=== PATIENT | male | born 1970 | race Asian ===

== ENCOUNTER 2020-06-02 16:08 | Observation (INO) ==
--- OUTSIDE RECORDS SUMMARY | 2020-06-02 16:10 | External Medical Summary | Continuity of Care Document ---
:1970 Author Name Yusuf Murdock Address Unavailable Unavailable , Care Team Providers Name Role Phone Mike Liz M.D. Unavailable [email or web address] Unavailable Unavailable Unavailable Unavailable Unavailable Problems Lumbar radiculopathy (724.4) (M54.16) Disc degeneration, lumbar (722.52) (M51.36) Sinusitis (473.9) (J32.9) Allergies and Adverse Reactions No Known Drug Allergies (Allergy) Medications Azithromycin 250 MG Oral Tablet; TAKE 2 TABLETS ON DAY 1 THEN TAKE 1 TABLET A DAY FOR 4 DAYS. Collette Liz Start: 26-Aug-2013 Quantity: 6 Refills: 1 Procedures Procedures not documented Immunizations Immunizations not documented Plan of Treatment Planned Observations Planned Goals not documented Results No Known Results Results not documented
[2020-06-02] MEDS ORDERED: ACETAMINOPHEN 325 MG TAB PO STA (16:50)
[2020-06-02] MEDS ORDERED: NITROGLYCERIN 2% OINTMENT 30GM TUBE EXT STA (16:50)
--- NOTE | 2020-06-02 17:00 | Emergency Department Note ---
Impression & Plan Precordial chest pain, Hypertension ED Provider Note NAME: STACIE CANAS AGE: 49 SEX: M : 1970 ARRIVES VIA: Ambulance INFORMANT: [Patient][family friend] ED PROVIDER(S): [Isreal Herron MD] CHIEF COMPLAINT: Chest pain HISTORY OF PRESENT ILLNESS: The patient is a 49-year-old male presents the ED with several bouts of chest pain over the last few days. His first episode occurred at night and actually woke him from sleep. The episodes last a few minutes in length. He has left- sided chest pain with radiation to his left shoulder. He was sweaty with the first episode 4 days ago. No shortness of breath, no nausea. The patient has had several episodes of chest discomfort since. Today, around 3 hours ago, he had a bout of chest discomfort that seemed a little more severe than his others. He would rate it as a 7 on a scale of 1-10. He had left chest pain and left shoulder pain, there was no sweating, no nausea or shortness of breath. The pain has resolved spontaneously. The patient has not noticed any exertional chest discomfort. He did see his doctor's office yesterday and had an ECG done. He was ordered for a stress test but that has yet to be performed. The patient presents today as his symptoms seemed to be slightly worse. He does have a strong family history of heart disease. He also lately has had some higher blood pressure. Patient's doctors office did call here, they are concerned about the possibility of coronary disease as the cause for his symptoms. REVIEW OF SYSTEMS: See HPI for pertinent positives and negatives. A total of ten systems were reviewed and were otherwise negative. PMHx/PSHx: See Below SOCIAL HISTORY: See Below. PHYSICAL EXAM: GENERAL: Patient is in no acute distress. HEENT: No acute trauma, normocephalic atraumatic, mucous membranes moist, no nasal congestion, no scleral icterus. NECK: No stridor, no adenopathy, no meningismus, trachea is midline. LUNGS: Clear to auscultation bilaterally, no wheeze, no rhonchi, breath sounds equal. HEART: Without murmurs gallops or rubs, regular rate and rhythm. ABDOMEN: Soft, nontender, bowel sounds positive, no hernias, no peritonitis. EXTREMITIES: No cyanosis or edema, full range of motion of all the joints without pain or difficulty, no signs for acute trauma. NEUROLOGIC: Oriented x 3, no acute motor or sensory deficits, no focal weakness. SKIN: No rash, no jaundice, no diaphoresis. DIFFERENTIAL DIAGNOSIS: EMERGENCY DEPARTMENT COURSE/PROCEDURES: ECG: Indication was chest pain. The ECG shows a normal sinus rhythm with a rate of 97. There is some very subtle ST depression in the lateral leads. There are some inverted T waves in the inferior leads. There is no ST elevation, no PVCs. The QTc is 467. No old ECGs available for comparison. Continuous Cardiac Monitoring: An order was placed for continuous cardiac monitoring. The monitor shows a rate of 98 with normal sinus rhythm. MEDICAL DECISION MAKING: There is no leukocytosis or concerning anemia. There is a normal platelet count. No coagulopathy. No significant electrolyte abnormality or kidney failure. No concerning liver enzyme elevation. No evidence for pancreatitis. ECG shows a sinus rhythm, there is no evidence for acute [place]. Cardiac enzyme testing x1 is not consistent with acute cardiac injury. Chest x-ray does not show mediastinal widening, pneumonia or pneumothorax. On exam, the patient was resting comfortably at the time of my evaluation, he was hypertensive. The patient was given nitroglycerin paste 2 inches. He received oral Tylenol to hopefully prevent any headache from the nitroglycerin. He was given IV Lopressor for his blood pressure elevation. The patient is currently without complaints. His blood pressure has decreased to 146/99. His pulse is around 77. The patient does have cardiac risk factors and I do think further cardiac work- up inside the hospital is warranted. I spoke to the patient and vinicio cifuentes. The on-call hospitalist was consulted. At this point, the cause for the chest pain is unclear. Past Med/Surg History Medical History GERD (gastroesophageal reflux disease) Social History Smoking Status: Never smoker Preferred Language: Macedonian Feels Safe at Home: Yes Allergies Allergies Allergy/AdvReac Type Severity Reaction Status Date / Time No Known Allergies Allergy Verified 06/02/20 18:27 Home Meds Home Medications Medication Instructions Recorded Confirmed No Known Home Medications 06/02/20 06/02/20 Results & Data (ED) Vital Signs Vital Signs - 24 hr 06/02/20 16:13 06/02/20 16:15 06/02/20 16:20 Temperature 37.2 C Temperature Source Oral Pulse Rate 89 103 H 95 H Pulse Rate from SpO2 Sensor 91 H 95 H Pulse Rhythm Regular Pulse Strength Normal Respiratory Rate 13 14 21 Respiratory Effort / Characteristics Non-Labored Spontaneous Respiratory Depth Normal Respiratory Pattern Regular Blood Pressure 186/124 H 186/124 H Blood Pressure Mean 144 144 Blood Pressure Position Sitting Pulse Oximetry 100 100 100 Oxygen Delivery Method Room Air Sepsis Recent Fever Within 48 Hours No Sepsis New/Unexplained Change in Mental Status No Sepsis Action Taken by Nursing No Action Required 06/02/20 16:30 06/02/20 16:31 06/02/20 16:40 Temperature Temperature Source Pulse Rate 83 86 83 Pulse Rate from SpO2 Sensor 86 86 84 Pulse Rhythm Pulse Strength Respiratory Rate 19 17 17 Respiratory Effort / Characteristics Respiratory Depth Respiratory Pattern Blood Pressure 185/127 H Blood Pressure Mean 146 Blood Pressure Position Pulse Oximetry 99 99 97 Oxygen Delivery Method Sepsis Recent Fever Within 48 Hours Sepsis New/Unexplained Change in Mental Status Sepsis Action Taken by Nursing 06/02/20 16:50 06/02/20 16:59 06/02/20 17:00 Temperature Temperature Source Pulse Rate 95 H 87 Pulse Rate from SpO2 Sensor 94 H 89 Pulse Rhythm Pulse Strength Respiratory Rate 17 16 Respiratory Effort / Characteristics Respiratory Depth Respiratory Pattern Blood Pressure 165/129 H Blood Pressure Mean 141 Blood Pressure Position Pulse Oximetry 100 100 99 Oxygen Delivery Method Room Air Sepsis Recent Fever Within 48 Hours Sepsis New/Unexplained Change in Mental Status Sepsis Action Taken by Nursing 06/02/20 17:01 06/02/20 17:10 06/02/20 17:20 Temperature Temperature Source Pulse Rate 97 H 98 H 87 Pulse Rate from SpO2 Sensor 95 H Pulse Rhythm Pulse Strength Respiratory Rate 21 22 19 Respiratory Effort / Characteristics Respiratory Depth Respiratory Pattern Blood Pressure Blood Pressure Mean Blood Pressure Position Pulse Oximetry 99 Oxygen Delivery Method Sepsis Recent Fever Within 48 Hours Sepsis New/Unexplained Change in Mental Status Sepsis Action Taken by Nursing 06/02/20 17:30 06/02/20 17:40 06/02/20 17:50 Temperature Temperature Source Pulse Rate 105 H 96 H 92 H Pulse Rate from SpO2 Sensor Pulse Rhythm Pulse Strength Respiratory Rate 20 19 14 Respiratory Effort / Characteristics Respiratory Depth Respiratory Pattern Blood Pressure 167/121 H Blood Pressure Mean 136 Blood Pressure Position Pulse Oximetry Oxygen Delivery Method Sepsis Recent Fever Within 48 Hours Sepsis New/Unexplained Change in Mental Status Sepsis Action Taken by Nursing 06/02/20 17:59 06/02/20 18:00 06/02/20 18:01 Temperature Temperature Source Pulse Rate 85 91 H 82 Pulse Rate from SpO2 Sensor Pulse Rhythm Pulse Strength Respiratory Rate 16 20 17 Respiratory Effort / Characteristics Respiratory Depth Respiratory Pattern Blood Pressure 171/108 H 163/113 H Blood Pressure Mean 129 129 Blood Pressure Position Pulse Oximetry Oxygen Delivery Method Sepsis Recent Fever Within 48 Hours Sepsis New/Unexplained Change in Mental Status Sepsis Action Taken by Nursing 06/02/20 18:10 06/02/20 18:14 06/02/20 18:30 Temperature Temperature Source Pulse Rate 91 H 93 H 73 Pulse Rate from SpO2 Sensor Pulse Rhythm Pulse Strength Respiratory Rate 15 15 20 Respiratory Effort / Characteristics Respiratory Depth Respiratory Pattern Blood Pressure 161/106 H 147/105 H Blood Pressure Mean 124 119 Blood Pressure Position Pulse Oximetry Oxygen Delivery Method Sepsis Recent Fever Within 48 Hours Sepsis New/Unexplained Change in Mental Status Sepsis Action Taken by Nursing 06/02/20 18:40 06/02/20 18:45 06/02/20 19:00 Temperature Temperature Source Pulse Rate 77 75 77 Pulse Rate from SpO2 Sensor Pulse Rhythm Pulse Strength Respiratory Rate 17 15 17 Respiratory Effort / Characteristics Respiratory Depth Respiratory Pattern Blood Pressure 167/103 H 146/99 H Blood Pressure Mean 124 114 Blood Pressure Position Pulse Oximetry Oxygen Delivery Method Sepsis Recent Fever Within 48 Hours Sepsis New/Unexplained Change in Mental Status Sepsis Action Taken by [facility] Medications Current Medication List: was personally reviewed by me Laboratory Data Attestation: I reviewed the patient's lab results. Result diagrams: 06/02/20 17:03 06/02/20 17:03 Lab Results 06/02/20 06/02/20 06/02/20 Range/Units 17:03 17:03 17:03 WBC 8.71 (4.8-10.8) K/uL RBC 5.69 (4.7-6.1) M/uL Hgb 15.3 (14.0-18.0) g/dL Hct 46.0 (42-52) % MCV 80.8 (80-100) fL MCH 26.9 (25-34) pg MCHC 33.3 (32-36) g/dL RDW Std Deviation 40.9 (36.4-46.3) fL RDW Coeff of Caden 13.8 (11.5-14.5) % Plt Count 295 (130-400) K/uL MPV 10.9 H (7.4-10.4) fL Immature Gran % (Auto) 0.2 % Neut % (Auto) 68.4 % Lymph % (Auto) 20.4 % [place] % (Auto) 7.9 % Eos % (Auto) 2.9 % Baso % (Auto) 0.2 % Neut # (Auto) 5.95 (1.4-6.5) K/uL Lymph # (Auto) 1.78 (1.2-3.4) K/uL [place] # (Auto) 0.69 H (0.11-0.59) K/uL Eos # (Auto) 0.25 (0-0.5) K/uL Baso # (Auto) 0.02 (0-0.2) K/uL Immature Gran # (Auto) 0.02 (0.00-0.02) K/uL PT 10.5 (9.0-12.0) Seconds INR 1.0 (0.9-1.1) APTT 30.1 (21.0-31.0) Seconds PTT Ratio 1.1 Sodium 137 (136-145) mmol/L Potassium 3.9 (3.5-5.1) mmol/L Chloride 103 (98-107) mmol/L Carbon Dioxide 28 (21-32) mmol/L Anion Gap 6.0 (3-11) BUN 9 (7-18) mg/dl Creatinine 0.98 (0.6-1.4) mg/dl Est Cr Clr Drug Dosing 89.7 ml/min Est GFR ( Amer) 103.8 Est GFR (Non-Af Amer) 89.5 BUN/Creatinine Ratio 9.4 L (10-20) Glucose 154 H (70-99) mg/dl Calcium 9.6 (8.5-10.1) mg/dl Magnesium 2.3 (1.8-2.4) mg/dl Total Bilirubin 0.5 (0.2-1) mg/dl AST 36 (15-37) U/L ALT 72 (12-78) U/L Alkaline Phosphatase 80 (45-117) U/L Troponin I 0.025 (0-0.045) ng/ml Total Protein 8.3 H (6.4-8.2) gm/dl Albumin 3.9 (3.4-5.0) gm/dl Globulin 4.4 H (2.5-4.0) gm/dl Albumin/Globulin Ratio 0.9 (0.9-2) Lipase 166 (73-393) U/L Administered Medications Discontinued Medications Acetaminophen (Acetaminophen 325 Mg Tab) 650 mg PO NOW STA Stop: 06/02/20 16:51 Last Admin: 06/02/20 17:22 Dose: 650 mg Documented by: [id number] Metoprolol Tartrate (Metoprolol Tartrate 1 Mg/Ml Vial) 5 mg IV NOW STA Stop: 06/02/20 18:01 Last Admin: 06/02/20 18:14 Dose: 5 mg Documented by: [id number] Nitroglycerin (Nitroglycerin 2% Ointment 30gm Tube) 2 inch EXT NOW STA Stop: 06/02/20 16:51 Last Admin: 06/02/20 17:22 Dose: 2 inch Documented by: [id number] Imaging Data Radiologist's Impression: XR chest 1V portable HISTORY: 49 years-old Male Chest Pain . Acute atypical chest pain COMPARISON: None TECHNIQUE: Portable AP view of the chest FINDINGS: Cardiac silhouette is upper limits of normal in size. No pneumothorax, pleural effusion, airspace consolidation or overt pulmonary edema. Bones of the chest appear grossly intact. IMPRESSION: No acute process. Discharge Plan Visit Data Chief Complaint: Cardiac Assessment Stated Complaint: Cardiac Assessment ED Provider: Isreal Herron Discharge Problem: Precordial chest pain, Hypertension Patient Disposition: Admitted As Inpatient Condition: Fair Forms Stand Alone Forms: [facility] [employer] Prescriptions Prescriptions: No Action No Known Home Medications RF: 0 Referrals Referrals: Bala Hill MD [Primary Care Provider] - Discharge Problem: Hypertension Qualifiers: Hypertension type: unspecified Qualified Code(s): I10 - Essential (primary) hypertension
--- NOTE | 2020-06-02 17:04 | XRay Report ---
XR chest 1V portable HISTORY: 49 years-old Male Chest Pain . Acute atypical chest pain COMPARISON: None TECHNIQUE: Portable AP view of the chest FINDINGS: Cardiac silhouette is upper limits of normal in size. No pneumothorax, pleural effusion, airspace con solidation or overt pulmonary edema. Bones of the chest appear grossly intact. IMPRESSION: No acute process. ACT 112: Negative or not required by law. The above report was generated using voice recognition software. It may contain grammatical, syntax o r spelling errors. Electronically signed by: Vinh Gill M.D. 06/02/2020 5:02 PM
[2020-06-02 17:20] LABS: Basophils # (auto) 0.02 K/uL (0-0.2); Basophils % (auto) 0.2 %; Eosinophils # (auto) 0.25 K/uL (0-0.5); Eosinophils % (auto) 2.9 %; Hemoglobin 15.3 g/dL (14.0-18.0); Immature Granulocytes # (auto) 0.02 K/uL (0.00-0.02); Immature Granulocytes % (auto) 0.2 %; Lymphocytes # (auto) 1.78 K/uL (1.2-3.4); Lymphocytes % (auto) 20.4 %; Mean Corpuscular Hemoglobin 26.9 pg (25-34); Mean Corpuscular Hgb Conc 33.3 g/dL (32-36); Mean Corpuscular Volume 80.8 fL (80-100); Mean Platelet Volume 10.9 fL (7.4-10.4); Monocytes # (auto) 0.69 K/uL (0.11-0.59); Monocytes % (auto) 7.9 %; Neutrophils # (auto) 5.95 K/uL (1.4-6.5); Neutrophils % (auto) 68.4 %; Platelet Count 295 K/uL (130-400); RDW Coefficient of Variation 13.8 % (11.5-14.5); RDW Standard Deviation 40.9 fL (36.4-46.3); Red Blood Count 5.69 M/uL (4.7-6.1); White Blood Count 8.71 K/uL (4.8-10.8)
[2020-06-02 17:30] LABS: Partial Thromboplastin Ratio 1.1; Partial Thromboplastin Time 30.1 Seconds (21.0-31.0); Prothrombin Time 10.5 Seconds (9.0-12.0)
[2020-06-02 17:37] LABS: Albumin Level 3.9 gm/dl (3.4-5.0); BUN Creatinine Ratio 9.4 (10-20); Calcium 9.6 mg/dl (8.5-10.1); Creatinine Clr Calc Pharmacy 89.7 ml/min; Est GFR (African American) 103.8; Est GFR (Non-African American) 89.5; Magnesium 2.3 mg/dl (1.8-2.4); Potassium 3.9 mmol/L (3.5-5.1)
[2020-06-02 17:42] LABS: Albumin Globulin Ratio 0.9 (0.9-2); Bilirubin,Total 0.5 mg/dl (0.2-1); Globulin 4.4 gm/dl (2.5-4.0); Total Protein 8.3 gm/dl (6.4-8.2); Troponin I 0.025 ng/ml (0-0.045)
[2020-06-02] MEDS ORDERED: METOPROLOL TARTRATE 1 MG/ML VIAL IV STA (18:00)
--- NOTE | 2020-06-02 19:09 | History & Physical Report ---
Date of Service June 02, 2020 Assessment & Plan (1) Chest pain: (2) Elevated blood pressure reading: (3) GERD (gastroesophageal reflux disease): Chest pain, atypical Musculoskeletal versus angina. Though patient has mild left chest wall tenderness, his history and family history makes cardiac cause a possibility as well. Initial troponin is negative. However, first episode of chest pain today was around 11 AM. We will trend troponins Telemetry monitoring Cardiology consult for possible stress test. N.p.o. past midnight Tylenol as needed for pain Continue omeprazole daily for now. Patient is not a known hypertensive. He reported that his blood pressure usually runs normally in the 120s over 80s. However, blood pressure measured at PCPs office yesterday was 150s systolic BP BP is currently 167/100. Will start lisinopril 5mg HS for now and monitor. Get A1c and lipid panel DVT ppx - hep sq History of Present Illness 49-year-old man with history of GERD who presents to the ER complaining of chest pain. Patient reported that first episode of chest pain happened on monday. Chest pain was left-sided, moderate, sharp, referred to the left arm, associated with diaphoresis and was not exertional. Patient initially thought that this may be related to either some food he had the previous day or some work he did that involved some lifting. He took some omeprazole which he usually takes as needed for his GERD. Chest pain only lasted less than 10 minutes and went away. He had seen his PCP and was being planned for outpatient stress test Today, patient had another episode of chest pain in the morning after taking some coffee which was similar to previous episode without diaphoresis and was not exertional. He had 2 more episodes after that today necessitating presentation to the ER. Denies any cough, shortness of breath, dyspnea on exertion, palpitations Denies any headache, dizziness Denies any fevers, chills, nausea Denies any abdominal pain, vomiting, diarrhea constipation Denies any dysuria, frequency, urgency, hematuria or incontinence Reports occasional back problems for which he takes occasional naproxen but none at the moment Denies smoking or illicit drug use. Drinks alcohol rarely. Reports family history of hypertension in the mother and father from heart attack in his 40s Primary Care Provider: Bala Hill MD Allergies Allergy/AdvReac Type Severity Reaction Status Date / Time No Known Allergies Allergy Verified 06/02/20 18:27 Home Medications Medication Instructions Recorded Confirmed Type No Known Home Medications 06/02/20 06/02/20 History Past Med/Surg History Medical History GERD (gastroesophageal reflux disease) Social History Smoking Status: Never smoker Preferred Language: Filipino Feels Safe at Home: Yes Review of Systems Review of Systems: All systems reviewed & are unremarkable except as noted in HPI & below Physical Exam Constitutional: + well hydrated; no acute distress Eyes: PERRL, conjunctivae normal, anicteric sclerae ENMT: external ear and nose normal, oropharynx normal Respiratory: normal respiratory effort, lungs clear to auscultation Cardiovascular: RRR, no murmur, no edema Chest (Breasts): Additional Comments: Has mild left chest wall tenderness Gastrointestinal (Abdomen): normal bowel sounds, soft, nontender, no hepatosplenomegaly Musculoskeletal: no cyanosis or clubbing, extremities motor strength 5/5 Neurologic: PERRL, EOMI, accommodation nl, no face palsy, no dysarthria Psychiatric: A+Ox3, euthymic affect Results & Data Results & Data ([facility]) Vital Signs (Past 12 Hours) Vital Signs Temp Pulse Resp BP Pulse Ox 06/02/20 18:14 93 H 15 161/106 H 06/02/20 18:10 91 H 15 06/02/20 18:01 82 17 06/02/20 18:00 91 H 20 163/113 H 06/02/20 17:59 85 16 171/108 H 06/02/20 17:50 92 H 14 167/121 H 06/02/20 17:40 96 H 19 06/02/20 17:30 105 H 20 06/02/20 17:20 87 19 06/02/20 17:10 98 H 22 06/02/20 17:01 97 H 21 99 06/02/20 17:00 87 16 165/129 H 99 06/02/20 16:59 100 06/02/20 16:50 95 H 17 100 06/02/20 16:40 83 17 97 06/02/20 16:31 86 17 99 06/02/20 16:30 83 19 185/127 H 99 06/02/20 16:20 95 H 21 100 06/02/20 16:15 37.2 C 103 H 14 186/124 H 100 06/02/20 16:13 89 13 186/124 H 100 Laboratory Results Laboratory Results - last 24 hr 06/02/20 06/02/20 06/02/20 17:03 17:03 17:03 WBC 8.71 RBC 5.69 Hgb 15.3 Hct 46.0 MCV 80.8 MCH 26.9 MCHC 33.3 RDW Std Deviation 40.9 RDW Coeff of Caden 13.8 Plt Count 295 MPV 10.9 H Immature Gran % (Auto) 0.2 Neut % (Auto) 68.4 Lymph % (Auto) 20.4 [place] % (Auto) 7.9 Eos % (Auto) 2.9 Baso % (Auto) 0.2 Neut # (Auto) 5.95 Lymph # (Auto) 1.78 [place] # (Auto) 0.69 H Eos # (Auto) 0.25 Baso # (Auto) 0.02 Immature Gran # (Auto) 0.02 PT 10.5 INR 1.0 APTT 30.1 PTT Ratio 1.1 Sodium 137 Potassium 3.9 Chloride 103 Carbon Dioxide 28 Anion Gap 6.0 BUN 9 Creatinine 0.98 Est Cr Clr Drug Dosing 89.7 Est GFR ( Amer) 103.8 Est GFR (Non-Af Amer) 89.5 BUN/Creatinine Ratio 9.4 L Glucose 154 H Calcium 9.6 Magnesium 2.3 Total Bilirubin 0.5 AST 36 ALT 72 Alkaline Phosphatase 80 Troponin I 0.025 Total Protein 8.3 H Albumin 3.9 Globulin 4.4 H Albumin/Globulin Ratio 0.9 Lipase 166
[2020-06-02] MEDS ORDERED: HEPARIN SOD 5,000 UNIT/0.5 ML VIAL SQ SCH (22:09)
[2020-06-02] MEDS ORDERED: lisinopril 5 MG TAB PO SCH (22:09)
[2020-06-02] MEDS ORDERED: ONDANSETRON INJ 2 MG/ML 2 ML VIAL IV PRN (22:09)
[2020-06-02] MEDS ORDERED: ACETAMINOPHEN 325 MG TAB PO PRN (22:09)
[2020-06-02] MEDS ORDERED: NITROGLYCERIN SL 0.4 MG/TAB TAB SL PRN (22:09)
[2020-06-02] MEDS ORDERED: POLYETHYLENE (MIRALAX) 17 GM PACK PO PRN (22:09)
[2020-06-03] MEDS ORDERED: ASPIRIN 81 MG CHEW PO STA (00:07)
[2020-06-03] MEDS ORDERED: HEPARIN SODIUM/DEXTROSE 25,000 UNITS/500 ML BAG IV SCH (00:15)
[2020-06-03] MEDS ORDERED: HEPARIN IV BOLUS 6,000 UNITS in SYRINGE 0 ML IV ONE (00:45)
[2020-06-03] MEDS ORDERED: ALUMINUM/MAGNESIUM/SIMETH (MAALOX MAX) 30 ML UDC PO STA (05:57)
[2020-06-03 07:05] LABS: Hematocrit (blood only) 43.5 % (42-52); Hemoglobin 14.5 g/dL (14.0-18.0); Mean Corpuscular Hgb Conc 33.3 g/dL (32-36); Mean Platelet Volume 10.7 fL (7.4-10.4); Platelet Count 275 K/uL (130-400); RDW Coefficient of Variation 13.8 % (11.5-14.5); RDW Standard Deviation 40.7 fL (36.4-46.3); Red Blood Count 5.37 M/uL (4.7-6.1); White Blood Count 12.48 K/uL (4.8-10.8)
[2020-06-03 07:22] LABS: Partial Thromboplastin Ratio > 5.0
[2020-06-03 07:32] LABS: BUN Creatinine Ratio 10.4 (10-20); Calcium 9.4 mg/dl (8.5-10.1); Creatinine Clr Calc Pharmacy 87.5 ml/min; Est GFR (African American) 103.8; Est GFR (Non-African American) 89.5; Potassium 3.8 mmol/L (3.5-5.1)
[2020-06-03 07:32] LABS: Estimated Average Glucose 180 mg/dl; Hemoglobin A1C 7.9 % (4.5-5.6)
[2020-06-03 07:34] LABS: Partial Thromboplastin Time > 139.0 Seconds (21.0-31.0)
[2020-06-03 07:58] LABS: Troponin I 2.31 ng/ml (0-0.045)
[2020-06-03] MEDS ORDERED: ALUMINUM/MAGNESIUM/SIMETH (MAALOX MAX) 30 ML UDC ONE (08:08)
[2020-06-03] MEDS: PANTOprazole 40 MG TAB PO SCH (08:11)
[2020-06-03] MEDS: ASPIRIN 81 MG ECTAB PO SCH (08:11)
[2020-06-03 08:33] LABS: Partial Thromboplastin Ratio 3.6
[2020-06-03 08:40] LABS: Partial Thromboplastin Time 101.4 Seconds (21.0-31.0)
[2020-06-03 08:54] LABS: D Dimer 220 ug/L FEU (0-500)
[2020-06-03] MEDS ORDERED: METOPROLOL TARTRATE 25 MG TAB PO SCH ×2 (09:00→21:00)
[2020-06-03] MEDS: ATORVASTATIN 40 MG TAB PO SCH (09:37)
--- NOTE | 2020-06-03 09:53 | Electrocardiogram Report ---
Test Reason : Blood Pressure : / mmHG Vent. Rate : 097 BPM Atrial Rate : 097 BPM P-R Int : 128 ms QRS Dur : 088 ms QT Int : 368 ms P-R-T Axes : 038 021 -17 degrees QTc Int : 467 ms Normal sinus rhythm No previous ECGs available Confirmed by Alfred Hui ([id number]) on 06/03/2020 9:52:56 AM Referred By: Bala Hill Confirmed By:Nacho Hui
--- NOTE | 2020-06-03 09:57 | Electrocardiogram Report ---
Test Reason : Blood Pressure : / mmHG Vent. Rate : 099 BPM Atrial Rate : 099 BPM P-R Int : 138 ms QRS Dur : 084 ms QT Int : 354 ms P-R-T Axes : 033 042 000 degrees QTc Int : 454 ms Normal sinus rhythm Normal ECG When compared with ECG of 02-JUN-2020 16:12, (unconfirmed) No significant change was found Confirmed by Alfred Hui ([id number]) on 06/03/2020 9:57:06 AM Referred By: Bala Hill Confirmed By:Nacho Hui
--- NOTE | 2020-06-03 10:00 | Electrocardiogram Report ---
Test Reason : Blood Pressure : / mmHG Vent. Rate : 101 BPM Atrial Rate : 101 BPM P-R Int : 132 ms QRS Dur : 084 ms QT Int : 364 ms P-R-T Axes : 031 041 012 degrees QTc Int : 471 ms Sinus tachycardia Otherwise normal ECG When compared with ECG of 03-JUN-2020 00:37, (unconfirmed) No significant change was found Confirmed by Alfred Hui ([id number]) on 06/03/2020 9:59:40 AM Referred By: Bala Hill Confirmed By:Nacho Hui
[2020-06-03 10:02] LABS: Partial Thromboplastin Time 54.6 Seconds (21.0-31.0)
--- NOTE | 2020-06-03 11:14 | Hospitalist Progress Note ---
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 He is also found to be in NSTEMI. NSTEMI Troponin elevation noted. Awaiting cardiology input. Currently on heparin infusion. Aspirin 81 mg daily, Lopressor 12.5 mg twice daily and Lipitor 40 mg daily. LDL of 115. Patient was hypertensive on admission, however blood pressure on okay side overnight. Newly diagnosed diabetes mellitus type 2 Hg1C A1c of 7.9. Will consult pharmacy for glycemic management. Consult parent educator for further input. COVID + No known exposure. Patient denies any respiratory symptoms. He remains on room air. White count is within normal limit. Chest x-ray without any infiltrates. No indication for Decadron or remdesivir at this point. D-dimer of 220 on admission. Rate is controlled. We will continue to monitor for now. DVT ppx - hep sq (4) NSTEMI (non-ST elevated myocardial infarction): Admission and Anticipated Discharge Date Admission Date: June 02, 2020 Subjective Patient denies any active chest pain at the moment. Reports he did have some chest tightness earlier in the morning but is currently doing okay. Does report headache but no dizziness. He denies any nausea or vomiting. He denies any palpitations denies any abdominal pain, diarrhea or dysuria. Denies any cough. Is not sure how he got the coronavirus. Not had any exposure. Review of Systems Review of Systems: All systems reviewed & are unremarkable except as noted in HPI & below Physical Exam Physical Exam: General: A&Ox3. Does not appear to be in any distress HENT: NCAT, MMM, EOMI Eyes: PERRLA Neck: Supple, normal range of motion CVS: normal rate and rhythm Resp: b/l good breath sounds Abdomen: Soft, ND/NT, +BS Extremities: Absence of any edema Neuro: face symmetric, strength grossly equal, no focal deficit Skin: warm and dry, no rashes/lesions/errythema MSK: normal ROM, no joint swelling/erythema Results & Data Results & Data ([facility]) Vital Signs (Past 12 Hours) Vital Signs Temp Pulse Pulse Resp BP Pulse Ox Pulse Ox 06/03/20 10:58 36.9 C 96 H 20 115/83 96 06/03/20 07:44 92 H 96 06/03/20 07:29 36.8 C 105 H 20 123/82 96 06/03/20 03:58 37.0 C 100 H 18 121/75 95 06/02/20 23:53 100 H 06/02/20 23:37 36.8 C 90 17 116/72 95
[2020-06-03] MEDS ORDERED: PHARMACY GLYCEMIC MGMT CONSULT PRN (11:28)
[2020-06-03] MEDS ORDERED: DEXTROSE 50% 50 ML SYRINGE IV PRN (11:45)
[2020-06-03] MEDS ORDERED: GLUCAGON FOR INJ 1 MG VIAL SQ PRN (11:45)
[2020-06-03] MEDS ORDERED: CARBOHYDRATES FOR HYPOGLYCEMIA PO PRN (11:45)
[2020-06-03] MEDS ORDERED: GLUCOSE 40% GEL 15 GM TUBE PO PRN (11:45)
[2020-06-03] MEDS ORDERED: GLUCOSE 10 TABS/TUBE PO PRN (11:45)
[2020-06-03] MEDS ORDERED: INSULIN ASPART 100 UNITS/ML 3 ML PEN SC SCH (12:00)
--- NOTE | 2020-06-03 13:07 | Cardiology Consultation ---
Date of Consultation June 03, 2020 Assessment & Plan (1) NSTEMI (non-ST elevated myocardial infarction): 49-year-old male, with apparent newly recognized type 2 diabetes mellitus, hemoglobin A1c 7.9% presents with waxing waning epigastric discomfort, chest pain of several days duration, subtle inferior ST segment depression, and troponin I elevation that has trended to 2.3 as of this morning. Patient has received aspirin, metoprolol, atorvastatin, unfractionated heparin infusion. He has tested positive for COVID-19, but has no infectious symptoms. Would recommend proceeding with early invasive strategy, case discussed with Dr. Christopher of interventional cardiology, will proceed with diagnostic cardiac catheterization, PCI if indicated, with strict COVID-19 personal protective gear for staff. (2) Hypertension: Patient with transient high blood pressures overnight, which improved on repeat readings. Heart rate remains above goal, increase metoprolol tartrate 25 mg twice daily. (3) Dyslipidemia: Atorvastatin 40 mg daily added. No specific treatment indicated at present for COVID-19, his pulse oximetry is 96% on room air, he has no infectious symptoms, and chest x-ray does not reveal pneumonia. History of Present Illness Attending Physician: Khadijah Keith MD History of Present Illness Duyen Ansari is a 49 year old male seen in cardiology consultation per the request of Dr Mohamud for the evaluation of chest pain. 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 He is not on any medications as an outpatient and has no significant past medical history with the exception of gastroesophageal reflux disease. Based on his lab results , it appears he has newly diagnosed type II Diabetes as his hemoglobin A1c is 7.9%. He states that approximately 4 days ago on Monday morning he awoke at 4 AM with chest and epigastric discomfort. He felt that this may have been due to spicy food that he had the night before, he took antacid medications subsequent to discomfort went away over several hours. Yesterday at 1130, coffee and had lunch, had recurrence of the chest/epigastric discomfort. He spoke to a friend who is a physician urged him to seek care at the emergency room. His initial EKG was performed on 06/02/2020 at 1612, impression, reveals rhythm at 97 bpm, repolarization changes suggestive of possible ischemia in the inferior leads. These were redemonstrated on a follow-up EKG,, and are less prominent on the repeat EKG performed this morning at 6:58 AM. His troponin I was elevated, but still within normal limits at the time of first measurement, and has trended up to 0.392 and 2.31 ng/ml on follow up studies. Echocardiogram performed today and reviewed independently revealed no pericardial effusion, normal left ventricular wall motion, LVEF 60 to 65%. The patient's SARS-CoV-2 , RNA test at 20:08 last evening was positive and he is therefore in the COVID-19 isolation unit. He denies any viral symptoms. Specifically no subjective fevers or chills, no cough, and notes no known personal contacts with [facility]-. Telemetry reveals sinus rhythm in the 90s. Past Medical History: GERD Apparent newly diagnosed Diabetes, Hgb A1C 7.9 % Family History: Father suddenly of what was felt to be an acute myocardial infarction at the age of 41 Allergies Allergy/AdvReac Type Severity Reaction Status Date / Time No Known Allergies Allergy Verified 06/02/20 18:27 Home Medications Medication Instructions Recorded Confirmed Type No Known Home Medications 06/02/20 06/02/20 History Patient History Medical History GERD (gastroesophageal reflux disease) Family History (Updated 06/03/20 @ 12:57 by Mathew Duque DO) Father Coronary heart disease Social History Smoking Status: Never smoker Hx Alcohol Use: No Hx Substance Use: No Preferred Language: Cambodian Communication Ability: Effective In Flight Refueling Manager Required: No Beliefs That Will Affect Care: Yarsani Current Living Situation: Spouse Other Information That Helps Us Care for You: No Feels Safe at Home: Yes Safety Concerns: Feels Safe At This Time Assistive Devices: Glasses Physical Exam Physical Exam: Temp Pulse Resp BP Pulse Ox 36.9 C 96 H 20 115/83 96 06/03/20 10:58 06/03/20 10:58 06/03/20 10:58 06/03/20 10:58 06/03/20 10:58 Constitutional: WD/WN, vitals as above Respiratory: normal respiratory effort, lungs clear to auscultation Gastrointestinal (Abdomen): normal bowel sounds, soft, nontender, no hepatosplenomegaly Neurologic: PERRL, EOMI, accommodation nl, no face palsy, no dysarthria Results & Data ([facility]) Vital Signs (Past 12 Hours) Vital Signs Temp Pulse Pulse Resp BP Pulse Ox Pulse Ox 06/03/20 10:58 36.9 C 96 H 20 115/83 96 06/03/20 07:44 92 H 96 06/03/20 07:29 36.8 C 105 H 20 123/82 96 06/03/20 03:58 37.0 C 100 H 18 121/75 95 Laboratory Results Cardiac Enzymes 06/02/20 06/02/20 06/03/20 Range/Units 17:03 23:10 06:52 AST 36 (15-37) U/L Troponin I 0.025 0.392 H* 2.310 H* (0-0.045) ng/ml Coagulation 06/02/20 06/03/20 06/03/20 Range/Units 17:03 06:52 07:58 PT 10.5 (9.0-12.0) Seconds APTT 30.1 > 139.0 H* 101.4 H* (21.0-31.0) Seconds 06/03/20 Range/Units 08:55 PT (9.0-12.0) Seconds APTT 54.6 H* (21.0-31.0) Seconds Lipids 06/03/20 Range/Units 06:52 Triglycerides 276 H (0-150) mg/dl Cholesterol 204 H (0-200) mg/dl HDL Cholesterol 34 mg/dl Cholesterol/HDL Ratio 6 CBC 06/02/20 06/03/20 Range/Units 17:03 06:51 WBC 8.71 12.48 H (4.8-10.8) K/uL RBC 5.69 5.37 (4.7-6.1) M/uL Hgb 15.3 14.5 (14.0-18.0) g/dL Hct 46.0 43.5 (42-52) % Plt Count 295 275 (130-400) K/uL Neut # (Auto) 5.95 (1.4-6.5) K/uL Lymph # (Auto) 1.78 (1.2-3.4) K/uL [place] # (Auto) 0.69 H (0.11-0.59) K/uL Eos # (Auto) 0.25 (0-0.5) K/uL Baso # (Auto) 0.02 (0-0.2) K/uL Comprehensive Metabolic Panel 06/02/20 06/03/20 Range/Units 17:03 06:52 Sodium 137 137 (136-145) mmol/L Potassium 3.9 3.8 (3.5-5.1) mmol/L Chloride 103 102 (98-107) mmol/L Carbon Dioxide 28 27 (21-32) mmol/L BUN 9 10 (7-18) mg/dl Creatinine 0.98 0.98 (0.6-1.4) mg/dl Glucose 154 H 162 H (70-99) mg/dl Calcium 9.6 9.4 (8.5-10.1) mg/dl AST 36 (15-37) U/L ALT 72 (12-78) U/L Alkaline Phosphatase 80 (45-117) U/L Total Protein 8.3 H (6.4-8.2) gm/dl Albumin 3.9 (3.4-5.0) gm/dl Intake and Output 06/02/20 06/03/20 06/03/20 22:59 06:59 14:59 Intake Total 240 / 240 164.583 / 164.583 Output Total 500 / 500 700 / 700 Balance -260 / -260 -535.417 / -535.417 Intake: IV 164.583 / 164.583 HEPARIN SODIUM/DEXTROSE 25,000 164.583 / 164.583 units In 500 ml @ 900 UNITS/HR 18 mls/hr IV .Q24H [facility] Rx#: [id number] Oral 240 / 240 Output: Urine 500 / 500 700 / 700 Other: Other Intake Source sips Weight 80.2 kg 79.2 kg Weight Measurement Method Built in Bedscale Standing Scale Diagnostic Findings EKG tracings and echocardiogram as described in the HPI. Medications Administered Current Inpatient Medications Acetaminophen (Acetaminophen 325 Mg Tab) 650 mg PO Q4H PRN PRN Reason: Pain or Fever Stop: 07/02/20 22:08 Aspirin (Aspirin 81 Mg Ectab) 81 mg PO [facility] Stop: 07/03/20 08:59 Last Admin: 06/03/20 08:11 Dose: 81 mg Documented by: Atorvastatin Calcium (Atorvastatin 40 Mg Tab) 40 mg PO [facility] Stop: 07/03/20 08:59 Last Admin: 06/03/20 09:37 Dose: 40 mg Documented by: Dextrose (Dextrose 50% 50 Ml Syringe) 25 - 50 ml IV UD PRN; Protocol PRN Reason: Hypoglycemia Protocol Stop: 07/03/20 11:44 Glucagon (Glucagon For Inj 1 Mg Vial) 1 mg SQ UD PRN; Protocol PRN Reason: Hypoglycemia Protocol Stop: 07/03/20 11:44 Glucose (Glucose 40% Gel 15 Gm Tube) 15 - 30 gm PO UD PRN; Protocol PRN Reason: Hypoglycemia Protocol Stop: 07/03/20 11:44 Glucose (Glucose 10 Tabs/Tube) 4 - 8 tabs PO UD PRN; Protocol PRN Reason: Hypoglycemia Protocol Stop: 07/03/20 11:44 Heparin Sodium/Dextrose (Heparin Sodium/Dextrose) 25,000 units in 500 mls @ 18 mls/hr IV .Q24H DEISY; Protocol Stop: 07/03/20 00:14 Last Titration: 06/03/20 10:10 Dose: 900 units/hr, 18 mls/hr Documented by: Insulin Aspart (Insulin Aspart 100 Units/Ml 3 Ml Pen) 0 units SC Q6 DEISY Stop: 07/03/20 11:59 Last Admin: 06/03/20 12:53 Dose: 1 units Documented by: Insulin Glargine (Insulin Glargine Solostar 100 Units/Ml 3 Ml Pen) 0 units SC HS ONE; Protocol Stop: 06/03/20 21:01 Metoprolol Tartrate (Metoprolol Tartrate 25 Mg Tab) 25 mg PO BID [facility] Stop: 07/03/20 20:59 Miscellaneous (Carbohydrates For Hypoglycemia ) 15 - 30 gm PO UD PRN PRN Reason: Hypoglycemia Treatment Stop: 07/03/20 11:44 Miscellaneous Information (Pharmacy Glycemic Mgmt Consult) 1 ea N/A UD PRN PRN Reason: Consult Stop: 07/03/20 11:27 Nitroglycerin (Nitroglycerin Sl 0.4 Mg/Tab Tab) 0.4 mg SL UD PRN PRN Reason: Chest Pain Stop: 07/02/20 22:08 Ondansetron HCl (Ondansetron Inj 2 Mg/Ml 2 Ml Vial) 4 mg IV Q6H PRN PRN Reason: Nausea Stop: 07/02/20 22:08 Pantoprazole Sodium (Pantoprazole 40 Mg Tab) 40 mg PO DAILY [facility] Stop: 07/03/20 08:59 Last Admin: 06/03/20 08:11 Dose: 40 mg Documented by: Polyethylene Glycol (Polyethylene (Miralax) 17 Gm Pack) 17 gm PO DAILY PRN PRN Reason: Constipation Stop: 07/02/20 22:08 (1) Hypertension Hypertension type: unspecified Qualified Code(s): I10 - Essential (primary) hypertension
[2020-06-03] MEDS ORDERED: MIDAZOLAM HCL 1 MG/ML 2ML VIAL ONE (13:22)
[2020-06-03] MEDS ORDERED: fentaNYL citrate 100 MCG/2 ML VIAL ONE ×2 (13:23→13:34)
[2020-06-03] MEDS ORDERED: niCARdipine HCL INJ 2.5 MG/ML 10 ML AMP ONE (13:23)
[2020-06-03] MEDS ORDERED: HEPARIN (PORCINE) 1000 UNIT/ML 10 ML (CATH LAB USE ONLY) ONE (13:24)
--- NOTE | 2020-06-03 13:24 | Communication Note ---
Date of Service: June 03, 2020 Per patient's request , I called and updated his spouse with test results with regards to newly diagnosed Diabetes and myocardial infarction. I discussed the rationale for cardiac catheterization. I counseled her she would receive an update by phone after the procedure. Patient's vitals signs are currently stable and per my discussion with him, he has no current anginal symptoms.
[2020-06-03] MEDS ORDERED: NITROGLYCERIN/D5W 100MCG/ML 20ML SYR ONE (13:28)
--- NOTE | 2020-06-03 13:48 | Pre Anesthesia Assessment ---
Date of Service June 03, 2020 Pre Sedation Assessment Vital Signs Temp Pulse Pulse Resp BP BP BP 06/03/20 10:58 98.4 F 96 H 20 115/83 06/03/20 07:44 92 H 06/03/20 07:29 98.2 F 105 H 20 123/82 06/03/20 03:58 98.6 F 100 H 18 121/75 06/02/20 23:53 100 H 06/02/20 23:37 98.2 F 90 17 116/72 06/02/20 22:26 97.9 F 97 H 16 120/86 06/02/20 22:09 06/02/20 21:37 100 H 18 130/97 06/02/20 20:00 89 18 136/98 06/02/20 19:00 77 17 146/99 H 06/02/20 18:45 75 15 167/103 H 06/02/20 18:40 77 17 06/02/20 18:30 73 20 147/105 H 06/02/20 18:14 93 H 15 161/106 H 06/02/20 18:10 91 H 15 06/02/20 18:01 82 17 06/02/20 18:00 91 H 20 163/113 H 06/02/20 17:59 85 16 171/108 H 06/02/20 17:50 92 H 14 167/121 H 06/02/20 17:40 96 H 19 06/02/20 17:30 105 H 20 06/02/20 17:20 87 19 06/02/20 17:10 98 H 22 06/02/20 17:01 97 H 21 06/02/20 17:00 87 16 165/129 H 06/02/20 16:59 06/02/20 16:50 95 H 17 06/02/20 16:40 83 17 06/02/20 16:31 86 17 06/02/20 16:30 83 19 185/127 H 06/02/20 16:20 95 H 21 06/02/20 16:15 99.0 F 103 H 14 186/124 H 06/02/20 16:13 89 13 186/124 H Pulse Ox Pulse Ox 06/03/20 10:58 96 06/03/20 07:44 96 06/03/20 07:29 96 06/03/20 03:58 95 06/02/20 23:53 06/02/20 23:37 95 06/02/20 22:26 94 06/02/20 22:09 94 06/02/20 21:37 97 06/02/20 20:00 96 06/02/20 19:00 06/02/20 18:45 06/02/20 18:40 06/02/20 18:30 06/02/20 18:14 06/02/20 18:10 06/02/20 18:01 06/02/20 18:00 06/02/20 17:59 06/02/20 17:50 06/02/20 17:40 06/02/20 17:30 06/02/20 17:20 06/02/20 17:10 06/02/20 17:01 99 06/02/20 17:00 99 06/02/20 16:59 100 06/02/20 16:50 100 06/02/20 16:40 97 06/02/20 16:31 99 06/02/20 16:30 99 06/02/20 16:20 100 06/02/20 16:15 100 06/02/20 16:13 100 Cardiovascular RRR, no murmur, no edema Respiratory normal respiratory effort, lungs clear to auscultation Pre-Sedation Airway Assessment Smoking Status: Never smoker Hx Sleep Apnea: No Hx Difficult Intubation: No Short, Thick Neck: No Thyromental Distance: > or= 3.5 Finger Breadths Oral Cavity: + WNL Mallampati Class: III ASA: ASA3 NPO Status Date of Last Intake of Fluids: 06/02/20 Time of Last Intake of Fluids: 23:00 Date of Last Intake of Solid Food: 06/02/20 Time of Last Intake of Solid Foods: 23:00 Procedure Planning Contraindications for Sedation: none Current Medications Reviewed: Yes Notes The planned sedation has been discussed with the patient. Informed Consent was obtained. I have identified the patient, determined the appropriateness of sedation and have assessed the patient immediately prior to the procedure. All medicine(s) and interventions are by my order.
--- NOTE | 2020-06-03 14:14 | Pharmacy Report ---
Pharmacy Glycemic Short Note 2 - Date of Service June 03, 2020 - Glycemic Short BSG Results (Last 24 hours): 06/02/20 06/03/20 06/03/20 17:03 06:52 08:27 Glucose 154 H 162 H POC Glucose 157 H 06/03/20 11:44 Glucose POC Glucose 156 H OUTPATIENT ANTIDIABETIC REGIMEN: * N/A * A1c 7.9% 06/03 ASSESSMENT: * KP is admitted with NSTEMI and COVID-19 infection. Currently NPO for cardiac catheterization. * Currently on a heparin infusion @ 18 ml/mr * A1c indicates diabetes, although this was not previously diagnosed * As patient is NPO and BSGs have remained in the 150s, will initiate novolog based on weight based stress of [address] orders for this evening. PLAN FOR INPATIENT GLYCEMIC CONTROL: * Hold outpatient oral diabetes medications * Basal insulin * Lantus 0-7-14 units SQ per scale * Bolus insulin * NovoLog per scale ACHS or Q6hrs while NPO * Goal Range: Low 110 mg/dL - High 140 mg/dL * Correction Factor: 30 mg/dL/unit * Nutritional / Prandial insulin per carb ratio of 1 unit per 10 grams CHO consumed PLAN FOR DISCHARGE: * Further recommendations to be decided
[2020-06-03] MEDS ORDERED: TICAGRELOR 90 MG TAB PO ONE (14:52)
--- NOTE | 2020-06-03 14:53 | Post Anesthesia Assessment ---
Date of Service June 03, 2020 Post Sedation Assessment Vital Signs Temp Pulse Pulse Resp BP BP BP 06/03/20 10:58 98.4 F 96 H 20 115/83 06/03/20 07:44 92 H 06/03/20 07:29 98.2 F 105 H 20 123/82 06/03/20 03:58 98.6 F 100 H 18 121/75 06/02/20 23:53 100 H 06/02/20 23:37 98.2 F 90 17 116/72 06/02/20 22:26 97.9 F 97 H 16 120/86 06/02/20 22:09 06/02/20 21:37 100 H 18 130/97 06/02/20 20:00 89 18 136/98 06/02/20 19:00 77 17 146/99 H 06/02/20 18:45 75 15 167/103 H 06/02/20 18:40 77 17 06/02/20 18:30 73 20 147/105 H 06/02/20 18:14 93 H 15 161/106 H 06/02/20 18:10 91 H 15 06/02/20 18:01 82 17 06/02/20 18:00 91 H 20 163/113 H 06/02/20 17:59 85 16 171/108 H 06/02/20 17:50 92 H 14 167/121 H 06/02/20 17:40 96 H 19 06/02/20 17:30 105 H 20 06/02/20 17:20 87 19 06/02/20 17:10 98 H 22 06/02/20 17:01 97 H 21 06/02/20 17:00 87 16 165/129 H 06/02/20 16:59 06/02/20 16:50 95 H 17 06/02/20 16:40 83 17 06/02/20 16:31 86 17 06/02/20 16:30 83 19 185/127 H 06/02/20 16:20 95 H 21 06/02/20 16:15 99.0 F 103 H 14 186/124 H 06/02/20 16:13 89 13 186/124 H Pulse Ox Pulse Ox 06/03/20 10:58 96 06/03/20 07:44 96 06/03/20 07:29 96 06/03/20 03:58 95 06/02/20 23:53 06/02/20 23:37 95 06/02/20 22:26 94 06/02/20 22:09 94 06/02/20 21:37 97 06/02/20 20:00 96 06/02/20 19:00 06/02/20 18:45 06/02/20 18:40 06/02/20 18:30 06/02/20 18:14 06/02/20 18:10 06/02/20 18:01 06/02/20 18:00 06/02/20 17:59 06/02/20 17:50 06/02/20 17:40 06/02/20 17:30 06/02/20 17:20 06/02/20 17:10 06/02/20 17:01 99 06/02/20 17:00 99 06/02/20 16:59 100 06/02/20 16:50 100 06/02/20 16:40 97 06/02/20 16:31 99 06/02/20 16:30 99 06/02/20 16:20 100 06/02/20 16:15 100 06/02/20 16:13 100 Recovery Score Activity: Moves 4 extremities Respiration: Deep Breath/Cough Circulation: +/-20% PreAnes Value Consciousness: Fully Awake Oxygen Saturation: O2 needed for >90% Discharge Sedation Level of Care: Fast Track Phase II Post Sedation Plan On clinical assessment, the patient appears to have tolerated the sedation without complications. Patient is recovering as anticipated. Patient will continue to be monitored by nursing and may be discharged when sedation discharge criteria are met per below protocol. Upon Completions of procedure up to 15 minutes continue every 5 minute vital signs and the P.A.R. score; then discharge to a Phase I or Fast Track to Phase II per the following guidelines: * Discharge Patient to appropriate Phase II area if PAR is 8 or greater or return to pre- procedure baseline. The post - procedure orders will be as directed. * If PAR score is less than 8 or not return to pre-procedure baseline then patient will follow Phase I monitoring till PAR is reached for Phase II. The Phase I may be done in procedure room or may call to secure a Phase I area. * If naloxone or flumazenil are used for reversal, hold in Phase I for continued monitoring from when last reversal dose was given for a minimum of 60 minutes or longer pending the nurse and/or physician discretion of patient condition before discharge to Phase II. Please call the Sedation Physician to re-evaluate and complete post-note for discharge to Phase II area. Do NOT discharge from procedure sedation or Phase 1 until post- sedation evaluation note is complete by procedure /sedation MD Sedation Discharge Instructions to be given to the patient at discharge to home.
--- NOTE | 2020-06-03 15:10 | Cardiac Catheterization ---
[facility] Data: Security Representative Cardiac Status Clinical evaluation leading to the procedure CAD Presenation: Non STEMI Anginal Classification: CCS IV Heart Failure: No Cardiogenic Shock within 24 Hours: No Cardiac Arrest within 24 Hours: No Imaging Studies Past 6 Months: Yes Stress Studies Past 6 Months: No Diagnostic Physicians Name: Alfred Christopher MD Status: Elective Closure Device Percutaneous Entry Location: Radial Closure Device: Radial Band Recommendations: PCI without planned CABG PCI Indication: PCI for high risk Non-CYNTHIA Lesion Segment Name: Proximal right PLB Culprit Artery: Yes Stenosis Prior to Rx (%): 80 Chronic Total Occlusion: No IVUS: No FFR: No Pre-Procedure UNA Flow: 3 Previously Treated Lesion: No Lesion Complexity: Non-High/Non-C Lesion Length (mm): 12 Thrombus Present: Yes Bifurcation Lesion: No Guidewire Across Lesion: Stenosis Post-Procedure (%): 0 Post-Procedure UNA Flow: 3 Devices(s) Deployed: Yes Yes Intraprocedure Events Significant Disection: No Perforation: No Cardiac Cath Procedure Full Procedure Date June 03, 2020 Pre-Procedure Diagnosis Pre-Procedure Diagnosis: Non STEMI AUC Score AUC Score: 8 Post-Procedure Diagnosis Post-Procedure Diagnosis: Severe CAD and Successful PCI Procedure(s) Performed Procedure(s) Performed: Coronary Angiography, Left Heart Cath and Drug Eluting Stent Administrative Services Specialist Alfred Christopher MD Parks Recreation Coordinator(s) Michelle Estimated Blood Loss Estimated Blood Loss: 10 Medication(s) Medication(s): Fentanyl, Heparin, Lidocaine 1%, Nicardipine, Nitroglycerin and Versed Medication(s): Ticagrelor Summary of Findings Indication: NSTEMI Access: 6 Fr right radial artery Catheters: [place], JL 3.5, Yury, JL 3.0 guide; JR4 guide Findings: LM -normal caliber, no significant disease LAD -medium caliber, mild diffuse proximal to mid (30 to 40%) disease, latemid focal stenosis 50 to 60%, distal vessel wraps around apex. Bifurcating medium caliber D1 with 90% stenosis in inferior branch. Circumflex -small caliber, no significant disease RCA -dominant, large caliber, 70 to 80% proximal large right PLB. Small (<2mm) bifurcating PDA with 80% mid segment disease. LVEDP -2 -- PCI -- Antithrombotic therapy: Heparin, ticagrelor Procedure: RCA cannulated with JR4 guide BMW wire passed across lesion into distal vessel Proximal right PLB lesion predilated with 2.5 compliant balloon Dilated lesion stented with 3.0 x 15 mm Exchange drug-eluting stent Stent post-dilated with 3.5 noncompliant balloon IC vasodilators administered for spasm Post procedure UNA 3 flow, stent well expanded with minimal residual stenosis and no apparent cardiac complications. Arterial Closure: TR band Summary: 1. Multi-vessel coronary artery disease -80% proximal large right PLB (acute culprit). 80% small branch of right PDA 50 to 60% late-mid LAD. Small inferior branch of D1 90% 2. Normal intracardiac filling pressure 3. Successful PCI of right PLB with single drug-eluting stent (3.0 x 15 mm Exchange; postdilated with 3.5 NC). Recommendations: To PCU for continued monitoring Loaded with ticagrelor 180 mg in Security Representative Continue dual-antiplatelet therapy for at least 1 year Consult cardiac Rehab Hemodynamics Rest Ao:: 128/76/104 Final Ao: 125/73/93 LV: 120/2 Recommendations Recommendations: PCI without planned CABG Specimens Specimens: None Radiation Exposure (mGy) 1092 Contrast (mls) 115 Fluids (cc crystalloids) Fluids (cc crystalloids): 132 Drains Drains: None Anesthesia Moderate Procedural Complication(s) None Disposition PCU I attest to the content of the Intraoperative Record and any orders documented therein. Any exceptions are noted below. [facility] Card Cath Procedure Codes Cardiac Catheterization Procedure 1: Cardiovascular Cath Procedures: 45964 Coronaries and LHC (+/-LV) Moderate Sedation Procedure 1: Sedation/Anesthesia: 42227 Mod Sedation by the same physician;Init15 Min Child Age 5 & Up Procedure 2: Sedation/Anesthesia: 43311 Mod Sedation by the same physician; Ea [id number] Minutes Stenting Procedure 1: Cardiovascular Stent Procedures: 60993 Perc transcatheter placement of intracoronary stent(s), with ang PG Care Time/CCT Total # of Minutes Spent Total Time Spent with Patient: Total time spent is greater than 50% in coordination of care (as documented) at patient's floor/unit and/or counseling patient:
[2020-06-03] MEDS ORDERED: SODIUM CHLORIDE 0.9% 1000ML 1,000 ML IV SCH (15:30)
[2020-06-03] MEDS ORDERED: METOPROLOL TARTRATE 25 MG TAB PO ONE (16:52)
[2020-06-03] MEDS: INSULIN ASPART 100 UNITS/ML 3 ML PEN SC SCH ×2 (18:20→21:16)
[2020-06-03] MEDS ORDERED: INSULIN GLARGINE SOLOSTAR 100 UNITS/ML 3 ML PEN SC ONE (21:00)
[2020-06-04] MEDS ORDERED: TICAGRELOR 90 MG TAB PO SCH (02:00)
[2020-06-04 07:52] LABS: Albumin Level 3.5 gm/dl (3.4-5.0); BUN Creatinine Ratio 9.4 (10-20); Calcium 9.2 mg/dl (8.5-10.1); Creatinine Clr Calc Pharmacy 87.1 ml/min; Est GFR (African American) 103.8; Est GFR (Non-African American) 89.5; Potassium 3.7 mmol/L (3.5-5.1)
[2020-06-04 07:56] LABS: Albumin Globulin Ratio 0.9 (0.9-2); Bilirubin,Total 1.2 mg/dl (0.2-1); Total Protein 7.5 gm/dl (6.4-8.2)
[2020-06-04] MEDS ORDERED: POTASSIUM CHLORIDE CRTAB 20 MEQ TABCR PO STA (08:17)
[2020-06-04] MEDS: ATORVASTATIN 40 MG TAB PO SCH (08:40)
[2020-06-04] MEDS: PANTOprazole 40 MG TAB PO SCH (08:40)
[2020-06-04] MEDS: ASPIRIN 81 MG ECTAB PO SCH (08:41)
[2020-06-04] MEDS: INSULIN ASPART 100 UNITS/ML 3 ML PEN SC SCH (08:42)
[2020-06-04] MEDS ORDERED: METOPROLOL TARTRATE 25 MG TAB PO SCH (09:00)
[2020-06-04] MEDS ORDERED: LOSARTAN POTASSIUM 25 MG TAB PO SCH (09:00)
[2020-06-04] MEDS ORDERED: METOPROLOL SUCC 50MG EXT REL TAB PO SCH (09:00)
--- NOTE | 2020-06-04 09:25 | Cardiology Progress Note ---
Date of Service June 04, 2020 Assessment & Plan (1) NSTEMI (non-ST elevated myocardial infarction): Cath findings as per procedure note: -Technically difficult cannulation of the left main multiple catheters utilized as noted in report. LM -normal caliber, no significant disease LAD -medium caliber, mild diffuse proximal to mid (30 to 40%) disease, latemid focal stenosis 50 to 60%, distal vessel wraps around apex. Bifurcating medium caliber D1 with 90% stenosis in inferior branch. Circumflex -small caliber, no significant disease RCA -dominant, large caliber, 70 to 80% proximal large right PLB. Small (<2mm) bifurcating PDA with 80% mid segment disease. -Patient underwent PCI, single 3 x 15 mm Alonso PACHECO to the PLB (posterior lateral branch) of the RCA. -Medical therapy for residual LAD, diagonal disease. Continue aspirin 81 mg daily, Brilinta 90 mg twice daily with plans for dual antiplatelet therapy for at least 1 year given SD, PACHECO. Stable for discharge on metoprolol succinate 50 mg daily, losartan 25 mg daily, atorvastatin 40 mg daily. (2) Hypertension: Metoprolol succinate 50 mg daily, losartan 25 mg daily-new medications (3) Dyslipidemia: Atorvastatin 40 mg daily. COVID-19: no infections symptoms, clinical scenario suggest false positive test, or asymptomatic infection. Patient advised with regards to social isolation for the next 10 to 14 days at home. Newly Diagnosed DM2: as per hospitalist team DISPOSTION: Stable from cardiology perspective for discharge with medication program as above. -Cardiology follow up with me in 1-3 weeks. Admission and Anticipated Discharge Date Admission Date: June 02, 2020 Subjective Chief complaint: Follow-up chest discomfort, epigastric discomfort Subjective: Patient seen in follow-up. Still without any symptoms suggestive of a viral illness. Tolerated cardiac catheterization/PCI to distal right coronary artery yesterday. No symptoms suggestive of recurrent angina reported last night or thus far this morning. Monitor reveals sinus rhythm in the range of 80 to 90 bpm. Review of Systems Review of Systems: All systems reviewed & are unremarkable except as noted in HPI & below Physical Exam Physical Exam: Temp Pulse Resp BP Pulse Ox 36.4 C L 81 16 142/91 H 96 06/04/20 07:54 06/04/20 07:58 06/04/20 07:54 06/04/20 07:54 06/04/20 07:54 Constitutional: WD/WN, vitals as above Respiratory: normal respiratory effort, lungs clear to auscultation Cardiovascular: RRR, no murmur, no edema Right radial artery access site, no cyst, no hematoma Gastrointestinal (Abdomen): normal bowel sounds, soft, nontender, no hepatosplenomegaly Neurologic: PERRL, EOMI, accommodation nl, no face palsy, no dysarthria Results & Data ([facility]) Vital Signs (Past 12 Hours) Vital Signs Temp Pulse Pulse Resp BP BP Pulse Ox 06/04/20 07:58 81 06/04/20 07:54 36.4 C L 84 16 142/91 H 96 06/04/20 07:25 06/04/20 04:37 36.8 C 82 18 127/88 95 06/04/20 00:00 85 06/03/20 23:46 37.0 C 84 21 125/79 97 06/03/20 22:47 37.1 C 92 H 20 130/97 96 Pulse Ox 06/04/20 07:58 06/04/20 07:54 06/04/20 07:25 96 06/04/20 04:37 06/04/20 00:00 06/03/20 23:46 06/03/20 22:47 Laboratory Results Cardiac Enzymes 06/04/20 Range/Units 06:19 AST 38 H (15-37) U/L Coagulation 06/03/20 Range/Units 08:55 APTT 54.6 H* (21.0-31.0) Seconds Comprehensive Metabolic Panel 06/04/20 Range/Units 06:19 Sodium 137 (136-145) mmol/L Potassium 3.7 (3.5-5.1) mmol/L Chloride 106 (98-107) mmol/L Carbon Dioxide 24 (21-32) mmol/L BUN 9 (7-18) mg/dl Creatinine 0.98 (0.6-1.4) mg/dl Glucose 139 H (70-99) mg/dl Calcium 9.2 (8.5-10.1) mg/dl AST 38 H (15-37) U/L ALT 52 (12-78) U/L Alkaline Phosphatase 66 (45-117) U/L Total Protein 7.5 (6.4-8.2) gm/dl Albumin 3.5 (3.4-5.0) gm/dl Intake and Output 06/03/20 06/04/20 06/04/20 22:59 06:59 14:59 Intake Total 970 / 1434.583 300 / 1434.583 Balance 970 / 734.583 300 / 734.583 Intake: IV 750 / 914.583 HEPARIN SODIUM/DEXTROSE 25,000 0 / 164.583 units In 500 ml @ 900 UNITS/HR 18 mls/hr IV .Q24H DEISY Rx#: [id number] Nss 1000ML 1,000 ml @ 100 mls/ 750 / 750 hr IV .Q7H30M EDISY Rx#:[id number] Oral 220 / 520 300 / 520 Other: # Unmeasured Voids 1 2 Weight 79.2 kg 78.5 kg Weight Measurement Method Built in [facility] Diagnostic Findings EKG sinus rhythm at 75 bpm previous tracings the repolarization changes in the inferior leads have resolved. (1) Hypertension Hypertension type: unspecified Qualified Code(s): I10 - Essential (primary) hypertension
--- NOTE | 2020-06-04 09:37 | Communication Note ---
Date of Service: June 04, 2020 I called and updated pt's spouse by phone.
--- NOTE | 2020-06-04 10:18 | Electrocardiogram Report ---
Test Reason : Blood Pressure : / mmHG Vent. Rate : 075 BPM Atrial Rate : 075 BPM P-R Int : 128 ms QRS Dur : 086 ms QT Int : 382 ms P-R-T Axes : 041 041 066 degrees QTc Int : 426 ms Normal sinus rhythm Normal ECG When compared with ECG of 03-JUN-2020 06:58, No significant change was found Confirmed by Alfred Hui ([id number]) on 06/04/2020 10:18:00 AM Referred By: Bala Hill Confirmed By:Nacho Hui
--- NOTE | 2020-06-06 14:57 | Discharge Summary ---
Date of Service June 06, 2020 Admission HPI Per Admitting Provider 49-year-old man with history of GERD who presents to the ER complaining of chest pain. Patient reported that first episode of chest pain happened on monday. Chest pain was left-sided, moderate, sharp, referred to the left arm, associated with diaphoresis and was not exertional. Patient initially thought that this may be related to either some food he had the previous day or some work he did that involved some lifting. He took some omeprazole which he usually takes as needed for his GERD. Chest pain only lasted less than 10 minutes and went away. He had seen his PCP and was being planned for outpatient stress test Today, patient had another episode of chest pain in the morning after taking some coffee which was similar to previous episode without diaphoresis and was not exertional. He had 2 more episodes after that today necessitating presentation to the ER. Denies any cough, shortness of breath, dyspnea on exertion, palpitations Denies any headache, dizziness Denies any fevers, chills, nausea Denies any abdominal pain, vomiting, diarrhea constipation Denies any dysuria, frequency, urgency, hematuria or incontinence Reports occasional back problems for which he takes occasional naproxen but none at the moment Denies smoking or illicit drug use. Drinks alcohol rarely. Reports family history of hypertension in the mother and father from heart attack in his 40s Admission Exam Per Admitting Provider Constitutional: + well hydrated; no acute distress Eyes: PERRL, conjunctivae normal, anicteric sclerae ENMT: external ear and nose normal, oropharynx normal Respiratory: normal respiratory effort, lungs clear to auscultation Cardiovascular: RRR, no murmur, no edema Chest (Breasts): Additional Comments: Has mild left chest wall tenderness Gastrointestinal (Abdomen): normal bowel sounds, soft, nontender, no hepatosplenomegaly Musculoskeletal: no cyanosis or clubbing, extremities motor strength 5/5 Neurologic: PERRL, EOMI, accommodation nl, no face palsy, no dysarthria Psychiatric: A+Ox3, euthymic affect Principal Diagnosis Chest pain Discharge Exam General: A&Ox3. Does not appear to be in any distress HENT: NCAT, MMM, EOMI Eyes: PERRLA Neck: Supple, normal range of motion CVS: normal rate and rhythm Resp: b/l good breath sounds Abdomen: Soft, ND/NT, +BS Extremities: Absence of any edema Neuro: face symmetric, strength grossly equal, no focal deficit Skin: warm and dry, no rashes/lesions/errythema MSK: normal ROM, no joint swelling/erythema Discharge Data Allergies Allergy/AdvReac Type Severity Reaction Status Date / Time Beef Containing Products Allergy Verified 06/03/20 16:46 beef derived (bovine) Allergy Verified 06/03/20 16:46 pork derived (porcine) Allergy Verified 06/03/20 16:46 Pork/Porcine Containing Allergy Verified 06/03/20 16:46 Products Consultations 06/02/20 18:29 ED Decision to Admit Stat 06/03/20 08:00 Consult Cardiology Routine 06/03/20 15:23 Consult Cardiac Rehabilitation Routine Procedures Performed Operation Date: 06/03/20 13:15 Actual Procedures p Cath, Left with Cors and Vent - Bhanu Christopher MD s Cineradiography w/Routine Exam - Bhanu Christopher MD p Drug Eluting Stent SGl Vessel - Bhanu Christopher MD Ordered Studies 06/03/20 12:49 CL Cath Imgs for PACS use only Routine Diabetes Follow up Diabetes Follow-up Needed for Newly Diagnosed Diabetes Hospital Course (1) Chest pain: (2) Elevated blood pressure reading: (3) GERD (gastroesophageal reflux disease): 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 He is also found to be in NSTEMI. NSTEMI Patient presented with chest pain. S/P cardiac cath with PACHECO to right PLB. Patient was discahrged with Aspirin 81 mg daily, Lopressor 12.5 mg twice daily, losartan and brilinta and Lipitor 40 mg daily. LDL of 115. Cardiac Catheterization: 1. Multi-vessel coronary artery disease -80% proximal large right PLB (acute culprit). 80% small branch of right PDA 50 to 60% late-mid LAD. Small inferior branch of D1 90% 2. Normal intracardiac filling pressure 3. Successful PCI of right PLB with single drug-eluting stent (3.0 x 15 mm Alonso; postdilated with 3.5 NC Newly diagnosed diabetes mellitus type 2 Hg1C A1c of 7.9. patient was dc on metformin and lifestyle management. COVID + No known exposure. Patient denied any respiratory symptoms. White count is within normal limit. Chest x-ray without any infiltrates. No indication for Decadron or remdesivir at this point. D-dimer of 220 on admission. Rate is controlled. We will continue to monitor for now. (4) NSTEMI (non-ST elevated myocardial infarction): Total Time Total Time Spent Total Time Spent (In Minutes): 35 Discharge Plan Discharge Items Patient Disposition: Home - Self-Care Reason For Visit: CP Discharge Diagnosis: Coronary artery disease Diabetes mellitus type 2 Hypertension Condition on Discharge: Fair Activity: Per Instructions section Lifting: No more than 10 pounds and Wait until after follow-up appointment Non-emergency contact: Primary Care Provider Call non-emergency contact if: your symptoms worsen Follow-up/Referrals: Mathew Duque DO [Inker Machine] - (Date & Time 06/25/2020 9:00 Benigno Duque [facility] [place] [facility], [facility] ) Bala Hill MD [Primary Care Provider] - (Date & Time 06/08/2020 12:00 Terell Hill [facility] General Internal Medicine [facility] PLEASE NOTE THAT THIS IS A TELEMEDICINE APPOINTMENT. PLEASE FOLLOW THE INSTRUCTIONS PROVIDED IN YOUR EMAIL. IF YOU HAVE ANY QUESTIONS PLEASE CALL ) Diet: Carb Consistent or DM2 Addtl Attending Provider Instructions: Follow-up with your primary care physician within 1 week. An appointment has been requested. 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 An appointment has been requested. Start taking Metformin 500 mg daily. Pending Studies at Discharge: No Stand-Alone Forms: My [facility] [employer], Smoking Cessation Medications and DC Order Prescriptions: New Brilinta 90 mg Tablet 90 mg PO BID Qty: 60 RF: 0 atorvastatin 40 mg Tablet 40 mg PO QAM Qty: 30 RF: 0 metoprolol succinate 50 mg Tablet Extended Release 24 Hr 50 mg PO QAM Qty: 30 RF: 0 aspirin 81 mg Tablet,Delayed Release (Dr/Ec) 81 mg PO QAM Qty: 30 RF: 0 pantoprazole 40 mg Tablet,Delayed Release (Dr/Ec) 40 mg PO DAILY Qty: 30 RF: 0 losartan 25 mg Tablet 25 mg PO QAM Qty: 30 RF: 0 nitroglycerin [Nitrostat] 0.4 mg Tablet, Sublingual 0.4 mg sublingual UD Qty: 15 RF: 0 metformin 500 mg tablet 500 mg PO DAILY Qty: 30 RF: 0 No Action No Known Home Medications RF: 0 Discharge Orders: Discharge Order (Routine); Ordered 06/04/20 Ordered By: Khadijah Capps/Other Patient Handouts: Managing Type 2 Diabetes, Exercise to Manage Your Blood Sugar, 5 Steps for Eating Healthier, Understanding Type 2 Diabetes, A1C Admission Data Admit Date/Time: 06/02/20 20:00 Attending Provider: Khadijah Keith Admit Provider: Dot Dawson I. Primary Care Provider: Bala Hill Other Providers: Dot Dawson I. ; Mathew Duque Other Interventions: Discharge Summary Assessment (RN) Last Done: 06/04/20 11:38
== END 2020-06-04 13:04 | disposition home or self-care (01) ==
LOC: ED 16:08 → 2E 16:08 → SUATTDRO 20:00 → 2E 21:37